=== PATIENT | female | born 1960 | race Caucasian/White ===

== ENCOUNTER 2024-04-16 13:03 | Emergency (ER) | payer MEDICARE ==
[~2024-04-16] VITALS: Ht 170.2 cm; Wt 87.5 kg
[2024-04-16 15:07] VITALS: BP 139/62; TEMP 97.8; O2SAT 98
== END 2024-04-16 15:28 | disposition home or self-care (01) ==
LOC: M ED 13:03
DX: S93.401A Sprain of unspecified ligament of right ankle, initial encounter (principal); Y92.019 Unspecified place in single-family (private) house as the place of occurrence of the external cause; Y93.9 Activity, unspecified; Y99.9 Unspecified external cause status; I10 Essential (primary) hypertension; E03.9 Hypothyroidism, unspecified